=== PATIENT | male | born 1940 | race Caucasian/White ===

== ENCOUNTER 2018-11-28 06:10 | Inpatient (IN) | payer OTHER ==
[2018-11-18 13:45] VITALS: BMI 24.3
[2018-11-28] MEDS ORDERED: CEFAZOLIN 2 GM/D5W 2 GM/50 ML ML IVPB ONE (07:05)
[2018-11-28] MEDS ORDERED: TRANEXAMIC ACID 1000 MG/10 ML VIAL IVPUSH ONE (07:05)
[2018-11-28] MEDS ORDERED: MIDAZOLAM HCL 2 MG/2 ML SINGLE DOSE VIAL ONE (07:11)
[2018-11-28] MEDS ORDERED: BUPIVACAINE LIPOSOME/PF (EXPAREL) 266 MG/20 ML VIAL ONE (07:12)
[2018-11-28] MEDS ORDERED: SODIUM CHLORIDE 0.9% P/F 10 ML VIAL IJ ONE (07:12)
[2018-11-28] MEDS: GABAPENTIN 300 MG CAPSULE (FP) PO ONE (07:15)
[2018-11-28] MEDS: CELECOXIB 200 MG CAPSULE PO ONE ×2 (07:15→17:22)
[2018-11-28] MEDS ORDERED: SUCCINYLCHOLINE CHLORIDE 200 MG/10 ML SYRINGE ONE (07:23)
[2018-11-28] MEDS ORDERED: ceFAZolin SODIUM 1 GM VIAL ONE (07:23)
[2018-11-28] MEDS ORDERED: PROPOFOL 20 ML ONE ×2 (07:23)
[2018-11-28] MEDS ORDERED: BUPIVACAINE HCL/PF 0.5% (5MG/ML) 10 ML VIAL ONE (07:24)
[2018-11-28] MEDS ORDERED: TRANEXAMIC ACID 1000 MG/10 ML VIAL ONE (07:46)
[2018-11-28] MEDS ORDERED: VANCOMYCIN 1,000 MG VIAL (RESTRICTED TO ID ONLY) ONE (07:46)
--- NOTE | 2018-11-28 12:00 | SURG ---
Surgery Supervisor Riprap Placing Note Supervisor Riprap Placing: Regina Newell PA-C Date of Service: 11/28/18 Diagnosis: left knee OA Procedure: Left knee total Makoplasty I was present for the entirety of the operative procedure. For further detail, please refer to operative report. Visit type - Case Type Case Type: Scheduled - Emergency Emergency Visit: No - New patient This patient is new to me today: Yes Date on this admission: 11/28/18
[2018-11-28] MEDS ORDERED: ACETAMINOPHEN INJECTION 100 ML IVPB ONE (12:10)
--- NOTE | 2018-11-28 12:33 | OP ---
Operative Note - Note: Operative Date: 11/28/18 Pre-Operative Diagnosis: Left knee OA Operation: Left GLADIS TKA Post-Operative Diagnosis: Same as Pre-op Surgeon: Oli Eubanks Pie Icer Machine: Regina Newell Anesthesia: Spinal Estimated Blood Loss (mls): 200
[2018-11-28] MEDS ORDERED: ACETAMINOPHEN 1000 MG/100 ML VIAL (NON FORMULARY) IVPB ONE (12:35)
[2018-11-28] MEDS: KETOROLAC TROMETHAMINE 15 MG/ML VIAL IVPUSH SCH ×2 (12:35→19:20)
[2018-11-28] MEDS ORDERED: KETOROLAC TROMETHAMINE 30 MG/1 ML VIAL ONE (12:36)
[2018-11-28] MEDS ORDERED: ONDANSETRON 4 MG/2 ML VIAL IVPUSH PRN ×2 (12:38→12:44)
[2018-11-28] MEDS ORDERED: MAG HYDROX/AL HYDROX/SIMETH 30 ML UNIT-DOSE CUP PO PRN (12:38)
[2018-11-28] MEDS ORDERED: MAGNESIUM HYDROX 2400MG/30ML ORAL SUSPENSION 30 ML CUP PO PRN (12:38)
--- NOTE | 2018-11-28 12:43 | SPEC ---
DATE OF OPERATION: 11/28/2018 PREOPERATIVE DIAGNOSIS: Left knee osteoarthritis. POSTOPERATIVE DIAGNOSIS: Left knee osteoarthritis. PROCEDURE: Left total knee arthroscopy with MAKOplasty robotic navigation. ATTENDING SURGEON: Dean Carlosn MD DEBONER: SONIA Santiago ANESTHESIA: Spinal plus sedation. ESTIMATED BLOOD LOSS: 200 mL. COMPLICATIONS: None. DISPOSITION: The patient was transferred to the PACU in stable condition. IMPLANTS USED: [employer] size 5 femoral component, size 5 tibial component, 35-mm patellar component, 11-mm posterior stabilized polyethylene component. INDICATIONS: This is a 78-year-old male who presented to the office complaining of severe left knee pain. He was seen and examined by Dr. Carlson, diagnosed with severe left knee osteoarthritis. The patient was initially treated conservatively with injections, medications, and physical therapy but continued to have severe pain and ambulatory dysfunction. He was, therefore, indicated for a left total knee replacement. The risks, benefits, and alternatives to the procedure were explained to the patient in great detail, and he elected to proceed with the procedure. DESCRIPTION OF PROCEDURE: On the day of surgery, the patient was taken to the operating room and placed on the OR table. Spinal anesthesia was administered by the anesthesiologist. The patient was then positioned supine on the table and all bony prominences were padded. The knee was then prepped and draped in the usual sterile fashion and intravenous antibiotics were given for infection prophylaxis. A surgical time-out was then performed with the team, and the patients identity, procedure, side, availability of implants, and the administration of antibiotics was confirmed. With the knee flexed, a midline incision was made and carried down through the subcutaneous fat to the underlying retinaculum. A medial parapatellar arthrotomy was performed. This was followed by a subperiosteal dissection of the tissue off the proximal, medial tibia. A portion of fat pad was removed from under the patellar tendon, and a small portion of fat was excised off the distal supracondylar femur. Electrocautery and an [employer] bipolar sealing device were used to achieve hemostasis. The knee was then flexed further and the anterior horn of the lateral meniscus was released from the midline. Next, the anterior and posterior cruciate ligaments were transected. Grade 4 changes were noted diffusely throughout the knee. Femoral and tibial checkpoints were then placed in the appropriate location using a mallet. Two parallel bicortical self-drilling pins were placed in the tibial diaphysis after making stab incisions and bluntly dissecting down to bone. Two pins were then placed in the distal supracondylar femur. The [employer] navigation arrays were then attached to both the femoral and tibial pins and the lower extremity was then registered to the robotic navigation device using various joint movements, as well as inputting several dozen reference points. The knee was then taken through a full range of motion with a corrective force applied. Alignment in varus/valgus as well as flexion/extension and soft tissue balance was measured in various positions. The navigation device showed a numerical and graphic representation of the soft tissue balance. The components were repositioned virtually using the software until optimal soft tissue balance was achieved on screen. Once this was accomplished, the final plan was saved and sent to the robot. Self-retaining retractors were then placed at the joint line for exposure and protection of the collateral ligaments. The robot was brought into the sterile field and registered with the navigation device. The robotic arm with attached oscillating saw blade was then used to perform femoral and tibial bone cuts as per the saved software plan. The femoral box cut was made using the appropriately sized manual cutting guide. The knee was then irrigated. Trial components were placed and the knee was taken through a full range of motion to assess soft tissue balance and alignment. The range of motion was found to be excellent and the soft tissue balance was optimal and according to plan. The knee was then put into extension and the patella everted. The synovium around the patella was circumscribed with electrocautery. A caliper was used to measure the patellar thickness and a saw was then used to resect the patella at the chondro-osseous junction. The cut surface was then sized and drilled for the appropriate patellar button, with care taken to medialize it. A trial patella was then placed and the knee was again taken through a full range of motion. The knee was found to have both good balance and good patellar tracking. All of the components were removed except the tibial base plate. The appropriate instrumentation was used to drill and punch the proximal tibia for the keel of the final component. All bony surfaces were then cleaned with pulsatile lavage and dried. Bone cement was then prepared on the back table, and final components were cemented in place in the usual fashion. Extruded cement was removed. The polyethylene trial was placed, the knee was put into extension, and axial pressure was applied for compression while the cement hardened. The patellar button was similarly cemented into place. Once the cement had hardened, the knee was taken through a full range of motion to assess stability, balance, and patellar tracking. This was found to be optimal and the trial polyethylene was exchanged for the appropriately sized real implant. The wound was then thoroughly irrigated with normal saline. A 3-minute dilute Betadine lavage was performed. The knee was again irrigated using a pulsatile lavage device. A periarticular injection was used to locally infiltrate the capsular tissues surrounding the implant and prosthesis. Then No. 1 Polysorb and 0 VLoc 180 barbed sutures were used to close the arthrotomy. Then No. 1 Polysorb and 2-0 VLoc 90 sutures were used in the subcutaneous tissues. Then 4-0 undyed Vicryl and Dermabond skin adhesive was used to close the stab incisions made for the navigation pins. The skin was closed using both 3-0 VLoc 90 suture in a running subcuticular fashion and Dermabond skin adhesive. Once this was completed a sterile Aquacel dressing and compressive Hiro-wrap was applied. The patient was then awakened and taken to the PACU in stable condition. DEAN CARLSON M.D. [id number]
[2018-11-28] MEDS ORDERED: PROMETHAZINE HCL 25 MG/1 ML VIAL IVPUSH PRN (12:44)
[2018-11-28] MEDS ORDERED: oxyCODONE HCL 5 MG TABLET PO PRN (12:44)
[2018-11-28] MEDS: traMADol HCL 50 MG TABLET PO SCH ×2 (12:45→18:50)
[2018-11-28] MEDS ORDERED: LACTATED RINGERS SOLUTION 1,000 ML IV SCH (12:45)
[2018-11-28] MEDS: oxyCODONE HCL 5 MG TABLET PO PRN ×2 (16:39→21:07)
[2018-11-28] MEDS: CEFAZOLIN 2 GM/D5W 2 GM/50 ML ML IVPB SCH (18:15)
[2018-11-28] MEDS: ACETAMINOPHEN 325 MG TABLET (FP) PO SCH (18:30)
[2018-11-28] MEDS ORDERED: DEXAMETHASONE SOD PHOSPHATE 10 MG/1 ML VIAL IVPB ONE (20:00)
[2018-11-28] MEDS: GABAPENTIN 300 MG CAPSULE (FP) PO SCH (21:06)
[2018-11-28] MEDS: SENNOSIDES/DOCUSATE COMBO (SENNA PLUS) TABLET (UD) PO SCH (21:06)
[2018-11-28] MEDS: LISINOPRIL 20 MG TABLET (FP) PO SCH (21:06)
[2018-11-28] MEDS: ROSUVASTATIN CA 5 MG TABLET (FP) PO SCH (21:06)
[2018-11-28] MEDS: CELECOXIB 200 MG CAPSULE PO SCH (21:06)
[2018-11-28] MEDS: ASCORBIC ACID 500 MG TABLET (FP) PO SCH (21:08)
[2018-11-28] MEDS ORDERED: UBIDECARENONE 300 MG PO SCH (22:00)
[2018-11-29] MEDS: ACETAMINOPHEN 325 MG TABLET (FP) PO SCH ×4 (00:23→19:13)
[2018-11-29] MEDS: traMADol HCL 50 MG TABLET PO SCH ×4 (00:23→19:09)
[2018-11-29] MEDS: KETOROLAC TROMETHAMINE 15 MG/ML VIAL IVPUSH SCH ×2 (00:24→06:36)
[2018-11-29] MEDS: CEFAZOLIN 2 GM/D5W 2 GM/50 ML ML IVPB SCH (01:38)
[2018-11-29 07:52] LABS: HEMATOCRIT 40.5 % (35.4-49); HEMOGLOBIN 13.7 GM/dl (11.7-16.9); MCH 32.5 pg (25.7-33.7); MCHC 33.7 g/dl (32.0-35.9); MEAN CELL VOLUME 96.5 fl (80-96); MEAN PLT VOLUME 7.5 fl (7.5-11.1); PLATELET COUNT 161 K/MM3 (134-434); RDW 12.8 % (11.9-15.9); WHITE BLOOD COUNT 8.5 K/mm3 (4.0-10.8)
[2018-11-29 07:54] LABS: CALCIUM 8.5 mg/dl (8.5-10); CREATININE 1.1 mg/dl (0.55-1.3); POTASSIUM 5.3 mmol/L (3.5-5.1)
[2018-11-29] MEDS: GABAPENTIN 300 MG CAPSULE (FP) PO ONE (08:51)
--- NOTE | 2018-11-29 08:57 | PN ---
Progress Note, Physician Chief Complaint: s/p left TKA under spinal anesthesia History of Present Illness: post op day one, adductor canal block for postop pain control - Current Medication List Current Medications: Active Medications Acetaminophen (Tylenol -) 650 mg PO Q6H [facility] Stop: 12/01/18 18:29 Last Admin: 11/29/18 06:35 Dose: 650 mg Al Hydroxide/Mg Hydroxide (Mylanta Oral Suspension -) 30 ml PO Q4H PRN PRN Reason: DYSPEPSIA Amlodipine Besylate (Norvasc -) 5 mg PO DAILY [facility] Apixaban (Eliquis -) 2.5 mg PO BID [facility] Ascorbic Acid (Vitamin C -) 500 mg PO BID [facility] Last Admin: 11/28/18 21:08 Dose: 500 mg Celecoxib (Celebrex -) 200 mg PO BID [facility] Last Admin: 11/28/18 21:06 Dose: 200 mg Gabapentin (Neurontin -) 300 mg PO BID [facility] Stop: 12/01/18 21:59 Last Admin: 11/28/18 21:06 Dose: 300 mg Lisinopril (Prinivil) 20 mg PO BID [facility] Last Admin: 11/28/18 21:06 Dose: 20 mg Magnesium Hydroxide (Milk Of Magnesia -) 30 ml PO PRN PRN PRN Reason: CONSTIPATION Metoprolol Tartrate (Lopressor -) 25 mg PO DAILY [facility] Multivitamins/Minerals/Vitamin C (Tab-A-Vit -) 1 tab PO DAILY [facility] Ondansetron HCl (Zofran Injection) 4 mg IVPUSH Q6H PRN PRN Reason: NAUSEA Oxycodone HCl (Roxicodone -) 5 mg PO Q3H PRN PRN Reason: PAIN LEVEL 1-5 Oxycodone HCl (Roxicodone -) 10 mg PO Q3H PRN PRN Reason: PAIN LEVEL 6-10 Last Admin: 11/28/18 21:07 Dose: 10 mg Pantoprazole Sodium (Protonix -) 40 mg PO DAILY [facility] Rosuvastatin Calcium (Crestor -) 5 mg PO HS [facility] Last Admin: 11/28/18 21:06 Dose: 5 mg Senna/Docusate Sodium (Pericolace -) 2 tablet PO BID [facility] Last Admin: 11/28/18 21:06 Dose: 2 tablet Tramadol HCl (Ultram -) 50 mg PO Q6H [facility] Last Admin: 11/29/18 06:35 Dose: 50 mg - Objective Vital Signs: Vital Signs Temperature 97.9 F 11/29/18 06:00 Pulse Rate 60 11/29/18 06:00 Respiratory Rate 18 11/29/18 06:00 Blood Pressure 157/67 11/29/18 06:00 O2 Sat by Pulse Oximetry (%) 97 11/29/18 08:24 Constitutional: Yes: Well Nourished Cardiovascular: Yes: WNL Respiratory: Yes: WNL Gastrointestinal: Yes: WNL Labs: CBC, BMP 11/29/18 07:05 11/29/18 07:05 Assessment/Plan Pain well controlled at rest, painful when standing, took oral analgesic before PT, worked well for him No other anesthetic complications. Will sign off care at this time.
[2018-11-29] MEDS: PANTOPRAZOLE 40 MG TABLET (FP) PO SCH (09:33)
[2018-11-29] MEDS: GABAPENTIN 300 MG CAPSULE (FP) PO SCH ×2 (09:33→21:21)
[2018-11-29] MEDS: SENNOSIDES/DOCUSATE COMBO (SENNA PLUS) TABLET (UD) PO SCH ×2 (09:34→21:19)
[2018-11-29] MEDS: ASCORBIC ACID 500 MG TABLET (FP) PO SCH ×2 (09:36→21:22)
[2018-11-29] MEDS: MULTIVITAMINS (DAILY MVI) TABLET (FP) PO SCH (09:36)
[2018-11-29] MEDS: LISINOPRIL 20 MG TABLET (FP) PO SCH (09:36)
[2018-11-29] MEDS: amLODIPine BESYLATE 5 MG TABLET (FP) PO SCH (09:36)
[2018-11-29] MEDS: CELECOXIB 200 MG CAPSULE PO SCH ×2 (09:38→21:22)
[2018-11-29] MEDS: APIXABAN 2.5 MG TABLET PO SCH ×2 (09:43→21:21)
[2018-11-29] MEDS ORDERED: METOPROLOL TARTRATE 25 MG TABLET (FP) PO SCH ×2 (10:00→22:00)
--- NOTE | 2018-11-29 18:37 | CONSULT ---
Consultation: REQUESTING PROVIDER: Dr. Eubanks CONSULT REQUEST: We have been asked to medically evaluate this patient post- operatively for hyponatremia and confusion. HISTORY OF PRESENT ILLNESS: 78 year-old male with a PMH significant for HTN, HLD, CAD s/p stents (2012), skin cancer, and left knee OA s/p left Jeff TKA on 11/28/[address] Oli Eubanks. Patient exhibited difficulty processing instructions today during PT. 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 REVIEW OF SYSTEMS: CONSTITUTIONAL: Absent: fever, chills, diaphoresis, generalized weakness, malaise, loss of appetite, weight change HEENT: Absent: rhinorrhea, nasal congestion, throat pain, throat swelling, difficulty swallowing, mouth swelling, ear pain, eye pain, visual changes CARDIOVASCULAR: Absent: chest pain, syncope, palpitations, irregular heart rate, lightheadedness , peripheral edema RESPIRATORY: Absent: cough, shortness of breath, dyspnea with exertion, orthopnea, wheezing, stridor, hemoptysis GASTROINTESTINAL: Absent: abdominal pain, abdominal distension, nausea, vomiting, diarrhea, constipation, melena, hematochezia GENITOURINARY: Absent: dysuria, frequency, urgency, hesitancy, hematuria, flank pain, genital pain MUSCULOSKELETAL: +mild pain left knee Absent: myalgia, arthralgia, joint swelling, back pain, neck pain SKIN: Absent: rash, itching, pallor HEMATOLOGIC/IMMUNOLOGIC: Absent: easy bleeding, easy bruising, lymphadenopathy, frequent infections ENDOCRINE: Absent: unexplained weight gain, unexplained weight loss, heat intolerance, cold intolerance NEUROLOGIC: Absent: headache, focal weakness or paresthesias, dizziness, unsteady gait, seizure, mental status changes, bladder or bowel incontinence PSYCHIATRIC: Absent: anxiety, depression, suicidal or homicidal ideation, hallucinations. PHYSICAL EXAMINATION Vital Signs - 24 hr 11/28/18 11/28/18 11/28/18 20:27 21:00 22:45 Temperature 97.5 F L 97.5 F L Pulse Rate 52 L 46 L Respiratory 18 18 18 Rate Blood Pressure 115/55 L 116/57 L O2 Sat by Pulse 100 100 98 Oximetry (%) 11/29/18 11/29/1819 01:21 06:00 08:24 Temperature 97.7 F 97.9 F Pulse Rate 51 L 60 Respiratory 18 18 Rate Blood Pressure 149/66 157/67 O2 Sat by Pulse 99 97 97 Oximetry (%) 11/29/18 11/29/18 10:00 14:08 Temperature 97.8 F 97.9 F Pulse Rate 60 60 Respiratory 18 18 Rate Blood Pressure 144/58 L 138/57 L O2 Sat by Pulse 97 Oximetry (%) GENERAL: Alert. Oriented to person, , surroundings. But states he worked with PT today and then walked out of the hospital and went home. Resisted redirection but after several times being told he did not go home, he agreed. HEAD: Normal with no signs of trauma. EYES: Pupils equal, round and reactive to light, extraocular movements intact, sclera anicteric, conjunctiva clear. No lid lag. LUNGS: CTA HEART: RRR, S1, S2 ABDOMEN: Soft, nontender, not distended MUSCULOSKELETAL: Normal range of motion at all joints. No bony deformities or tenderness. No CVA tenderness. UPPER EXTREMITIES: 2+ pulses, warm, well-perfused. No cyanosis. No clubbing. Cap refill <2 seconds. No peripheral edema. LOWER EXTREMITIES: 2+ pulses, warm, well-perfused. No calf tenderness. No peripheral edema. NEUROLOGICAL: Cranial nerves II-XII intact. Normal speech. Laboratory Results - last 24 hr 11/29/18 11/29/18 07:05 07:05 WBC 8.5 RBC 4.20 Hgb 13.7 Hct 40.5 MCV 96.5 H MCH 32.5 MCHC 33.7 RDW 12.8 Plt Count 161 MPV 7.5 Sodium 127 L Potassium 5.3 H Chloride 93 L Carbon Dioxide 28 Anion Gap 6 L BUN 22.0 H Creatinine 1.1 Est GFR (CKD-EPI)AfAm 74.13 Est GFR (CKD-EPI)NonAf 63.96 Random Glucose 166 H Calcium 8.5 Active Medications Generic Name Dose Route Start Last Admin Trade Name Freq PRN Reason Stop Dose Admin Acetaminophen 650 mg 11/28/18 18:30 11/29/18 13:14 Tylenol - PO 12/01/18 18:29 650 mg Q6H [facility] Administration Al Hydroxide/Mg Hydroxide 30 ml 11/28/18 12:38 Mylanta Oral Suspension - PO Q4H PRN DYSPEPSIA Amlodipine Besylate 5 mg 11/29/18 10:00 11/29/18 09:36 Norvasc - PO 5 mg DAILY [facility] Administration Apixaban 2.5 mg 11/29/18 10:00 11/29/18 09:43 Eliquis - PO 2.5 mg BID [facility] Administration Ascorbic Acid 500 mg 11/28/18 22:00 11/29/18 09:36 Vitamin C - PO 500 mg BID [facility] Administration Celecoxib 200 mg 11/28/18 22:00 11/29/18 09:38 Celebrex - PO 200 mg BID [facility] Administration Gabapentin 300 mg 11/28/18 22:00 11/29/18 09:33 Neurontin - PO 12/01/18 21:59 300 mg BID [facility] Administration Lisinopril 20 mg 11/28/18 22:00 11/29/18 09:36 Prinivil PO 20 mg BID [facility] Administration Magnesium Hydroxide 30 ml 11/28/18 12:38 Milk Of Magnesia - PO PRN PRN CONSTIPATION Metoprolol Tartrate 25 mg 11/29/18 22:00 Lopressor - PO HS [facility] Multivitamins/Minerals/Vitamin C 1 tab 11/29/18 10:00 11/29/18 09:36 Tab-A-Vit - PO 1 tab DAILY [facility] Administration Ondansetron HCl 4 mg 11/28/18 12:38 Zofran Injection IVPUSH Q6H PRN NAUSEA Oxycodone HCl 5 mg 11/28/18 12:44 Roxicodone - PO Q3H PRN PAIN LEVEL 1-5 Oxycodone HCl 10 mg 11/28/18 12:44 11/28/18 21:07 Roxicodone - PO 10 mg Q3H PRN Administration PAIN LEVEL 6-10 Pantoprazole Sodium 40 mg 11/29/18 10:00 11/29/18 09:33 Protonix - PO 40 mg DAILY [facility] Administration Rosuvastatin Calcium 5 mg 11/28/18 22:00 11/28/18 21:06 Crestor - PO 5 mg HS [facility] Administration Senna/Docusate Sodium 2 tablet 11/28/18 22:00 11/29/18 09:34 Pericolace - PO 2 tablet BID [facility] Administration Tramadol HCl 50 mg 11/28/18 12:45 11/29/18 13:13 Ultram - PO 50 mg Q6H [facility] Administration ASSESSMENT/PLAN: 78 year-old male with a PMH significant for HTN, HLD, CAD s/p stents (2012), skin cancer, and left knee OA s/p left Jeff TKA on 11/28/[address] Oli Eubanks. Patient exhibited difficulty processing instructions today during PT. 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 Altered mental status --CT head stat --possible metabolic encephalopathy secondary to hyponatremia, Na 127; give NS 500mL x 1 bolus, then 50mL/hr; hold lisinopril evening dose; bmp q4h --mildly hyperkalemic, IV fluids --bradycardia: HR last night in 40s, now in 60s; hold metoprolol; cardiac monitoring; EKG; replete K>4, Mg >2 --r/o occult infection: UA, UC, blood cultures, CXR; no antibiotics for now --urinary retention: bladder scan showed ~400cc's; start flomax; monitor renal function; strict I&Os --stop all opioids DVT prophylaxis: on Eliquis Dispo: We will continue to follow the patient. Thank you for this consultative opportunity. Visit type - Emergency Visit Emergency Visit: Yes ED Registration Date: 11/28/18 Care time: The patient presented to the Emergency Department on the above date and was hospitalized for further evaluation of their emergent condition. - New Patient This patient is new to me today: Yes Date on this admission: 12/01/18 - Critical Care Critical Care patient: No
[2018-11-29] MEDS ORDERED: SODIUM CHLORIDE 500 ML IV STA (19:25)
[2018-11-29] MEDS ORDERED: SODIUM CHLORIDE 1,000 ML IV SCH ×2 (19:30→20:59)
[2018-11-29 20:09] LABS: BASO % 0.1 % (0-2.0); PLATELET COUNT 160 K/MM3 (134-434)
[2018-11-29 20:12] LABS: EOS % 0.1 % (0-4.5); HEMATOCRIT 35.2 % (35.4-49); HEMOGLOBIN 12.2 GM/dl (11.7-16.9); LYMPH % 3.8 % (8-40); MCH 33.4 pg (25.7-33.7); MCHC 34.6 g/dl (32.0-35.9); MEAN CELL VOLUME 96.4 fl (80-96); MEAN PLT VOLUME 7.9 fl (7.5-11.1); RBC 3.66 M/mm3 (4.00-5.60); RDW 12.8 % (11.9-15.9); WHITE BLOOD COUNT 14.1 K/mm3 (4.0-10.8)
[2018-11-29 20:24] LABS: ALBUMIN 3.6 g/dl (3.4-5.0); CREATININE 1.2 mg/dl (0.55-1.3); TOT PROT 6.3 g/dl (6.4-8.2)
[2018-11-29 20:28] LABS: POTASSIUM 5.6 mmol/L (3.5-5.1)
[2018-11-29] MEDS: ROSUVASTATIN CA 5 MG TABLET (FP) PO SCH (21:19)
[2018-11-29 23:41] LABS: CALCIUM 8.1 mg/dl (8.5-10); POTASSIUM 4.8 mmol/L (3.5-5.1)
--- NOTE | 2018-11-29 23:49 | PN ---
Progress Note (short form) - Note Progress Note: Pt seen and examined. Events noted. Hospitalist consultation appreciated. Afebrile Selected Entries 11/29/18 22:34 Temperature 97.9 F Pulse Rate 58 L Respiratory 18 Rate Blood Pressure 135/60 O2 Sat by Pulse 99 Oximetry (%) Oxygen Delivery Room Air Method Laboratory Tests 11/29/18 11/29/18 11/29/18 07:05 07:05 19:40 WBC 8.5 14.1 H Hgb 13.7 12.2 Hct 40.5 35.2 L Plt Count 161 160 Sodium 127 L Potassium 5.3 H Chloride 93 L Carbon Dioxide 28 Anion Gap 6 L BUN 22.0 H Random Glucose 166 H 11/29/18 11/29/18 19:40 23:25 WBC Hgb Hct Plt Count Sodium 125 L 124 L Potassium 5.6 H 4.8 Chloride 92 L 95 L Carbon Dioxide 28 28 Anion Gap 5 L 1 L BUN 30.0 H 26.0 H Random Glucose 153 H 128 H Gen: NAD, awake, coherent. LLE: c/d/i, NVID A/P POD #1 s/p L GLADIS TKA, hyponatremia, hyperkalemia, weakness, confusion Hold discharge until condition improves PT/OOB - WBAT LLE Hospitalist consult and recommendations appreciated.
[2018-11-30] MEDS: ACETAMINOPHEN 325 MG TABLET (FP) PO SCH ×4 (00:49→19:08)
[2018-11-30 04:13] LABS: BLOOD UREA NITROGEN 24.2 mg/dL (7-18); CREATININE 0.8 mg/dL (0.55-1.3); POTASSIUM 4.6 mmol/L (3.5-5.1)
[2018-11-30 07:53] LABS: HEMATOCRIT 33.1 % (35.4-49); HEMOGLOBIN 11.6 GM/dl (11.7-16.9); MCH 33.8 pg (25.7-33.7); MCHC 35.2 g/dl (32.0-35.9); MEAN CELL VOLUME 95.8 fl (80-96); MEAN PLT VOLUME 7.9 fl (7.5-11.1); PLATELET COUNT 142 K/MM3 (134-434); RBC 3.45 M/mm3 (4.00-5.60); WHITE BLOOD COUNT 10.2 K/mm3 (4.0-10.8)
[2018-11-30 07:56] LABS: CALCIUM 8.1 mg/dl (8.5-10); CREATININE 0.9 mg/dl (0.55-1.3); POTASSIUM 4.5 mmol/L (3.5-5.1)
[2018-11-30] MEDS: TAMSULOSIN HCL 0.4 MG CAP PO SCH (08:09)
[2018-11-30] MEDS: ASCORBIC ACID 500 MG TABLET (FP) PO SCH ×2 (09:13→21:32)
[2018-11-30] MEDS: GABAPENTIN 300 MG CAPSULE (FP) PO SCH ×2 (09:13→21:33)
[2018-11-30] MEDS: SENNOSIDES/DOCUSATE COMBO (SENNA PLUS) TABLET (UD) PO SCH ×2 (09:13→21:32)
[2018-11-30] MEDS: amLODIPine BESYLATE 5 MG TABLET (FP) PO SCH (09:13)
[2018-11-30] MEDS: PANTOPRAZOLE 40 MG TABLET (FP) PO SCH (09:13)
[2018-11-30] MEDS: MULTIVITAMINS (DAILY MVI) TABLET (FP) PO SCH (09:13)
[2018-11-30] MEDS: APIXABAN 2.5 MG TABLET PO SCH ×2 (09:13→21:33)
[2018-11-30 13:08] LABS: CALCIUM 7.9 mg/dl (8.5-10); CREATININE 0.9 mg/dl (0.55-1.3); POTASSIUM 4.7 mmol/L (3.5-5.1)
--- NOTE | 2018-11-30 15:59 | PATH ---
Surgical Pathology Report Patient Name: KATHLEEN SÁNCHEZ Med. Rec. #: [id number] /Age/Gender: 1940 (Age: 78) / M Account: [id number] Location: [facility] MED-SURG Taken: 11/28/2018 Received: 11/28/2018 Reported: 11/30/2018 Physicians: Oli Eubanks M.D. Specimen(s) Received LEFT KNEE BONE AND TISSUE Clinical History Left knee, osteoarthritis Final Diagnosis KNEE, LEFT, BONE AND TISSUE, TOTAL KNEE REPLACEMENT: DEGENERATIVE JOINT DISEASE. Electronically Signed Regina Zhu M.D. Gross Description Received in formalin, labeled "left knee, bone and tissue" is a 13.5 x 9.6 x 2.5 cm aggregate of multiple portions of bone with cartilage and soft tissue. The tibial plateau measures 8.2 x 4.5 x 1.0 cm. The articular surfaces show areas of eburnation and appear granular. The underlying trabecular bone is hard and yellow. Project Management Professional tissue is submitted in one cassette after decalcification. AE/11/29/2018 ebram/11/29/2018
[2018-11-30 16:45] LABS: CALCIUM 7.7 mg/dl (8.5-10); CREATININE 1.1 mg/dl (0.55-1.3); POTASSIUM 5.4 mmol/L (3.5-5.1)
[2018-11-30] MEDS ORDERED: SODIUM POLYSTYRENE SULFONATE 15 GM/60 ML BOTTLE PO ONE (19:08)
--- NOTE | 2018-11-30 19:58 | PN ---
Progress Note (short form) - Note Progress Note: Pt seen and examined. Events noted. Hospitalist consultation appreciated. Afebrile Selected Entries 11/30/18 11/30/18 11/30/18 09:09 14:02 18:00 Temperature 98.1 F 97.9 F Pulse Rate 61 68 Respiratory 18 17 Rate Blood Pressure 106/51 L 124/55 L O2 Sat by Pulse 100 97 94 L Oximetry (%) Laboratory Tests 11/29/18 11/30/18 11/30/18 19:40 06:53 12:44 WBC 14.1 H 10.2 RBC 3.66 L 3.45 L Hgb 12.2 11.6 L Hct 35.2 L 33.1 L Plt Count 160 142 Sodium 126 L Potassium 4.7 Chloride 95 L Carbon Dioxide 27 Anion Gap 4 L BUN 21.0 H Creatinine 0.9 Random Glucose 128 H Calcium 7.9 L 11/30/18 15:30 WBC RBC Hgb Hct Plt Count Sodium 124 L Potassium 5.4 H Chloride 94 L Carbon Dioxide 27 Anion Gap 3 L BUN 22.0 H Creatinine 1.1 Random Glucose 103 Calcium 7.7 L Gen: NAD, awake, coherent. LLE: c/d/i, NVID. (+) quad weakness A/P POD #2 s/p L GLADIS TKA, hyponatremia, hyperkalemia, weakness Hold discharge until condition improves PT/OOB - WBAT LLE Eventual discharge to SNF/rehab.
[2018-11-30 21:18] LABS: CALCIUM 7.8 mg/dl (8.5-10)
[2018-11-30] MEDS: ROSUVASTATIN CA 5 MG TABLET (FP) PO SCH (21:33)
[2018-12-01] MEDS: ACETAMINOPHEN 325 MG TABLET (FP) PO SCH ×3 (00:49→12:46)
--- NOTE | 2018-12-01 07:32 | PN ---
Physical Exam: SUBJECTIVE: Patient seen and examined at bedside. No confusion today, walked with PT, stronger. OBJECTIVE: Vital Signs Period Temp Pulse Resp BP Sys/Lujan Pulse Ox Last 24 Hr 97.5 F-98.7 F 61-73 17-18 106-147/49-67 93-100 GENERAL: A&Ox3. LUNGS: CTA HEART: RRR, S1, S2 ABDOMEN: Soft, nontender, not distended MUSCULOSKELETAL LLE: surgical dressing c/d/i, surgical site not visualized UPPER EXTREMITIES: 2+ pulses, warm, well-perfused. No cyanosis. No clubbing. Cap refill <2 seconds. No peripheral edema. LOWER EXTREMITIES: 2+ pulses, warm, well-perfused. No calf tenderness. No peripheral edema. NEUROLOGICAL: Cranial nerves II-XII intact. Normal speech. Laboratory Results - last 24 hr 11/30/18 11/30/18 11/30/18 06:53 06:53 10:56 WBC 10.2 RBC 3.45 L Hgb 11.6 L Hct 33.1 L MCV 95.8 MCH 33.8 H MCHC 35.2 RDW 13.0 Plt Count 142 MPV 7.9 Sodium 127 L Potassium 4.5 Chloride 96 L Carbon Dioxide 27 Anion Gap 4 L BUN 22.0 H Creatinine 0.9 Est GFR (CKD-EPI)AfAm 94.48 Est GFR (CKD-EPI)NonAf 81.52 Random Glucose 102 Serum Osmolality 271 L Calcium 8.1 L TSH 1.03 Urine Osmolality Ur Random Creatinine U Random Total Protein Ur Random Sodium Urine Creatinine Protein/Creatinin Ratio 11/30/18 11/30/18 11/30/18 12:44 15:30 16:20 WBC RBC Hgb Hct MCV MCH MCHC RDW Plt Count MPV Sodium 126 L 124 L Potassium 4.7 5.4 H Chloride 95 L 94 L Carbon Dioxide 27 27 Anion Gap 4 L 3 L BUN 21.0 H 22.0 H Creatinine 0.9 1.1 Est GFR (CKD-EPI)AfAm 94.48 74.13 Est GFR (CKD-EPI)NonAf 81.52 63.96 Random Glucose 128 H 103 Serum Osmolality Calcium 7.9 L 7.7 L TSH Urine Osmolality Ur Random Creatinine U Random Total Protein Ur Random Sodium 73 Urine Creatinine Protein/Creatinin Ratio 11/30/18 11/30/18 11/30/18 16:20 16:20 16:20 WBC RBC Hgb Hct MCV MCH MCHC RDW Plt Count MPV Sodium Potassium Chloride Carbon Dioxide Anion Gap BUN Creatinine Est GFR (CKD-EPI)AfAm Est GFR (CKD-EPI)NonAf Random Glucose Serum Osmolality Calcium TSH Urine Osmolality 505 Ur Random Creatinine U Random Total Protein 18.2 H 18.2 H Ur Random Sodium Urine Creatinine 62.0 Protein/Creatinin Ratio 0.3 11/30/18 11/30/18 16:20 20:50 WBC RBC Hgb Hct MCV MCH MCHC RDW Plt Count MPV Sodium 122 L Potassium 5.0 Chloride 89 L Carbon Dioxide 26 Anion Gap 7 L BUN 22.0 H Creatinine 1.0 Est GFR (CKD-EPI)AfAm 83.18 Est GFR (CKD-EPI)NonAf 71.77 Random Glucose 110 H Serum Osmolality Calcium 7.8 L TSH Urine Osmolality Ur Random Creatinine 64.8 U Random Total Protein Ur Random Sodium Urine Creatinine Protein/Creatinin Ratio Active Medications Generic Name Dose Route Start Trade Name Freq PRN Reason Stop Acetaminophen 650 mg 11/28/18 18:30 Tylenol - PO Q6H [facility] Al Hydroxide/Mg Hydroxide 30 ml 11/28/18 12:38 Mylanta Oral Suspension - PO Q4H PRN DYSPEPSIA Amlodipine Besylate 5 mg 11/29/18 10:00 Norvasc - PO DAILY [facility] Apixaban 2.5 mg 11/29/18 10:00 Eliquis - PO BID [facility] Ascorbic Acid 500 mg 11/28/18 22:00 Vitamin C - PO BID [facility] Gabapentin 300 mg 11/28/18 22:00 Neurontin - PO BID [facility] Lisinopril 20 mg 11/28/18 22:00 Prinivil PO BID [facility] Magnesium Hydroxide 30 ml 11/28/18 12:38 Milk Of Magnesia - PO PRN PRN CONSTIPATION Multivitamins/Minerals/Vitamin C 1 tab 11/29/18 10:00 Tab-A-Vit - PO DAILY [facility] Ondansetron HCl 4 mg 11/28/18 12:38 Zofran Injection IVPUSH Q6H PRN NAUSEA Pantoprazole Sodium 40 mg 11/29/18 10:00 Protonix - PO DAILY [facility] Rosuvastatin Calcium 5 mg 11/28/18 22:00 Crestor - PO HS [facility] Senna/Docusate Sodium 2 tablet 11/28/18 22:00 Pericolace - PO BID [facility] Tamsulosin HCl 0.4 mg 11/30/18 08:30 Flomax - PO DAILY@0830 [facility] ASSESSMENT/PLAN: 78 year-old male with a PMH significant for HTN, HLD, CAD s/p stents (2012), skin cancer, and left knee OA s/p left Jeff TKA on 11/28/18. Hospital course complicated by hyponatremia. Hyponatremia Metabolic encephalopathy likely due to hyponatremia, improved --Na dropped post-operatively and remains low at 127; will continue to trend ; if does not improve this evening, will d/c IV fluids and start fluid restriction --mental confusion observed yesterday appears to have resolved --gait was steadier today with PT --bradycardia also improved, HR now in 60s --no s/s of infection --making good urine, continue flomax --continue to hold opioids DVT prophylaxis: on Eliquis Dispo: We will continue to follow the patient. Thank you for this consultative opportunity. Visit type - Emergency Visit Emergency Visit: No - New Patient This patient is new to me today: No - Critical Care Critical Care patient: No
[2018-12-01] MEDS: TAMSULOSIN HCL 0.4 MG CAP PO SCH (07:55)
[2018-12-01 07:59] LABS: BASO % 0.3 % (0-2.0); EOS % 2.8 % (0-4.5); HEMOGLOBIN 10.3 GM/dl (11.7-16.9); LYMPH % 10.6 % (8-40); MCH 32.9 pg (25.7-33.7); MCHC 34.2 g/dl (32.0-35.9); MEAN CELL VOLUME 96.2 fl (80-96); MEAN PLT VOLUME 7.7 fl (7.5-11.1); MONO % 6.2 % (3.8-10.2); NEUT % 80.1 % (42.8-82.8); PLATELET COUNT 141 K/MM3 (134-434); RBC 3.12 M/mm3 (4.00-5.60); RDW 12.9 % (11.9-15.9); WHITE BLOOD COUNT 9.3 K/mm3 (4.0-10.8)
[2018-12-01 08:03] LABS: ALBUMIN 2.9 g/dl (3.4-5.0); BILIRUBIN,TOTAL 0.9 mg/dl (0.2-1); CALCIUM 7.6 mg/dl (8.5-10); CREATININE 0.9 mg/dl (0.55-1.3); MAGNESIUM 1.6 mg/dL (1.8-2.4); POTASSIUM 4.4 mmol/L (3.5-5.1); TOT PROT 5.1 g/dl (6.4-8.2)
[2018-12-01] MEDS ORDERED: MAGNESIUM OXIDE 400 MG TABLET (FP) PO ONE (08:45)
--- NOTE | 2018-12-01 10:37 | PN ---
Physical Exam: SUBJECTIVE: Patient seen and examined oob to chair. Did well with PT today. Gait is steadier. OBJECTIVE: Vital Signs Period Temp Pulse Resp BP Sys/Lujan Pulse Ox Last 24 Hr 97.9 F-98.7 F 61-73 17-18 106-137/48-61 93-98 GENERAL: A&Ox3. LUNGS: CTA HEART: RRR, S1, S2 ABDOMEN: Soft, nontender, not distended MUSCULOSKELETAL LLE: surgical dressing c/d/i, surgical site not visualized UPPER EXTREMITIES: 2+ pulses, warm, well-perfused. No cyanosis. No clubbing. Cap refill <2 seconds. No peripheral edema. LOWER EXTREMITIES: 2+ pulses, warm, well-perfused. No calf tenderness. No peripheral edema. NEUROLOGICAL: Cranial nerves II-XII intact. Normal speech. Laboratory Results - last 24 hr 11/30/18 11/30/18 11/30/18 10:56 12:44 15:30 WBC RBC Hgb Hct MCV MCH MCHC RDW Plt Count MPV Absolute Neuts (auto) Neutrophils % Lymphocytes % Monocytes % Eosinophils % Basophils % Sodium 126 L 124 L Potassium 4.7 5.4 H Chloride 95 L 94 L Carbon Dioxide 27 27 Anion Gap 4 L 3 L BUN 21.0 H 22.0 H Creatinine 0.9 1.1 Est GFR (CKD-EPI)AfAm 94.48 74.13 Est GFR (CKD-EPI)NonAf 81.52 63.96 Random Glucose 128 H 103 Serum Osmolality 271 L Calcium 7.9 L 7.7 L Magnesium Total Bilirubin AST ALT Alkaline Phosphatase Total Protein Albumin TSH 1.03 Urine Osmolality Ur Random Creatinine U Random Total Protein Ur Random Sodium Urine Creatinine Protein/Creatinin Ratio 11/30/18 11/30/18 11/30/18 16:20 16:20 16:20 WBC RBC Hgb Hct MCV MCH MCHC RDW Plt Count MPV Absolute Neuts (auto) Neutrophils % Lymphocytes % Monocytes % Eosinophils % Basophils % Sodium Potassium Chloride Carbon Dioxide Anion Gap BUN Creatinine Est GFR (CKD-EPI)AfAm Est GFR (CKD-EPI)NonAf Random Glucose Serum Osmolality Calcium Magnesium Total Bilirubin AST ALT Alkaline Phosphatase Total Protein Albumin TSH Urine Osmolality 505 Ur Random Creatinine U Random Total Protein 18.2 H Ur Random Sodium 73 Urine Creatinine 62.0 Protein/Creatinin Ratio 0.3 11/30/18 11/30/1819 16:20 16:20 20:50 WBC RBC Hgb Hct MCV MCH MCHC RDW Plt Count MPV Absolute Neuts (auto) Neutrophils % Lymphocytes % Monocytes % Eosinophils % Basophils % Sodium 122 L Potassium 5.0 Chloride 89 L Carbon Dioxide 26 Anion Gap 7 L BUN 22.0 H Creatinine 1.0 Est GFR (CKD-EPI)AfAm 83.18 Est GFR (CKD-EPI)NonAf 71.77 Random Glucose 110 H Serum Osmolality Calcium 7.8 L Magnesium Total Bilirubin AST ALT Alkaline Phosphatase Total Protein Albumin TSH Urine Osmolality Ur Random Creatinine 64.8 U Random Total Protein 18.2 H Ur Random Sodium Urine Creatinine Protein/Creatinin Ratio 12/01/18 12/01/18 06:57 06:57 WBC 9.3 RBC 3.12 L Hgb 10.3 L Hct 30.0 L MCV 96.2 H MCH 32.9 MCHC 34.2 RDW 12.9 Plt Count 141 MPV 7.7 Absolute Neuts (auto) 7.3 Neutrophils % 80.1 Lymphocytes % 10.6 D Monocytes % 6.2 Eosinophils % 2.8 D Basophils % 0.3 Sodium 122 L Potassium 4.4 Chloride 88 L Carbon Dioxide 27 Anion Gap 7 L BUN 17.0 Creatinine 0.9 Est GFR (CKD-EPI)AfAm 94.48 Est GFR (CKD-EPI)NonAf 81.52 Random Glucose 104 Serum Osmolality Calcium 7.6 L Magnesium 1.6 L Total Bilirubin 0.9 AST 28 ALT 18 Alkaline Phosphatase 38 L D Total Protein 5.1 L Albumin 2.9 L TSH Urine Osmolality Ur Random Creatinine U Random Total Protein Ur Random Sodium Urine Creatinine Protein/Creatinin Ratio Active Medications Generic Name Dose Route Start Last Admin Trade Name Freq PRN Reason Stop Dose Admin Acetaminophen 650 mg 11/28/18 18:30 12/01/18 06:40 Tylenol - PO 12/01/18 18:29 650 mg Q6H [facility] Administration Al Hydroxide/Mg Hydroxide 30 ml 11/28/18 12:38 Mylanta Oral Suspension - PO Q4H PRN DYSPEPSIA Amlodipine Besylate 5 mg 11/29/18 10:00 11/30/18 09:13 Norvasc - PO 5 mg DAILY [facility] Administration Apixaban 2.5 mg 11/29/18 10:00 11/30/18 21:33 Eliquis - PO 2.5 mg BID [facility] Administration Ascorbic Acid 500 mg 11/28/18 22:00 11/30/18 21:32 Vitamin C - PO 500 mg BID [facility] Administration Gabapentin 300 mg 11/28/18 22:00 11/30/18 21:33 Neurontin - PO 12/01/18 21:59 300 mg BID [facility] Administration Lisinopril 20 mg 11/28/18 22:00 11/29/18 09:36 Prinivil PO 20 mg BID [facility] Administration Magnesium Hydroxide 30 ml 11/28/18 12:38 Milk Of Magnesia - PO PRN PRN CONSTIPATION Multivitamins/Minerals/Vitamin C 1 tab 11/29/18 10:00 11/30/18 09:13 Tab-A-Vit - PO 1 tab DAILY [facility] Administration Pantoprazole Sodium 40 mg 11/29/18 10:00 11/30/18 09:13 Protonix - PO 40 mg DAILY [facility] Administration Rosuvastatin Calcium 5 mg 11/28/18 22:00 11/30/18 21:33 Crestor - PO 5 mg HS [facility] Administration Senna/Docusate Sodium 2 tablet 11/28/18 22:00 11/30/18 21:32 Pericolace - PO 2 tablet BID [facility] Administration Tamsulosin HCl 0.4 mg 11/30/18 08:30 12/01/18 07:55 Flomax - PO 0.4 mg DAILY@0830 [facility] Administration ASSESSMENT/PLAN: 78 year-old male with a PMH significant for HTN, HLD, CAD s/p stents (2012), skin cancer, and left knee OA s/p left Jeff TKA on 11/28/18. Hospital course complicated by hyponatremia. Hyponatremia Metabolic encephalopathy likely due to hyponatremia, improved --Na dropped post-operatively and remains low at 122; IV fluids stopped; fluid restrict 1L/24 hours --renal consult placed --mental confusion appears to have resolved --gait was steadier today with PT and walked further --bradycardia also improved, HR now in 70s and stable --no s/s of infection --making good urine, continue flomax --continue to hold opioids DVT prophylaxis: on Eli Dispo: We will continue to follow the patient. Thank you for this consultative opportunity. Visit type - Emergency Visit Emergency Visit: No - New Patient This patient is new to me today: No - Critical Care Critical Care patient: No
[2018-12-01] MEDS: amLODIPine BESYLATE 5 MG TABLET (FP) PO SCH (10:55)
[2018-12-01] MEDS: GABAPENTIN 300 MG CAPSULE (FP) PO SCH (10:55)
[2018-12-01] MEDS: PANTOPRAZOLE 40 MG TABLET (FP) PO SCH (10:55)
[2018-12-01] MEDS: ASCORBIC ACID 500 MG TABLET (FP) PO SCH ×2 (10:55→21:13)
[2018-12-01] MEDS: SENNOSIDES/DOCUSATE COMBO (SENNA PLUS) TABLET (UD) PO SCH ×2 (10:55→21:14)
[2018-12-01] MEDS: MULTIVITAMINS (DAILY MVI) TABLET (FP) PO SCH (10:55)
[2018-12-01] MEDS: APIXABAN 2.5 MG TABLET PO SCH ×2 (10:55→21:13)
--- NOTE | 2018-12-01 12:47 | PN ---
Progress Note (short form) - Note Progress Note: Pt seen and examined. Events noted. Hospitalist consultation appreciated. Afebrile Selected Entries 12/01/18 10:00 Temperature 98.3 F Pulse Rate 71 Respiratory 18 Rate Blood Pressure 115/48 L O2 Sat by Pulse 98 Oximetry (%) Oxygen Delivery Room Air Method Laboratory Tests 11/30/18 11/30/18 11/30/18 06:53 10:56 15:30 WBC 10.2 Hgb 11.6 L Hct 33.1 L Plt Count 142 Sodium 124 L Potassium 5.4 H Chloride 94 L Carbon Dioxide 27 Anion Gap 3 L BUN 22.0 H Creatinine 1.1 Random Glucose 103 Calcium Magnesium Total Bilirubin AST ALT Alkaline Phosphatase Total Protein Albumin TSH 1.03 11/30/18 12/01/18 12/01/18 20:50 06:57 06:57 WBC 9.3 Hgb 10.3 L Hct 30.0 L Plt Count 141 Sodium 122 L 122 L Potassium 5.0 4.4 Chloride 89 L 88 L Carbon Dioxide 26 27 Anion Gap 7 L 7 L BUN 22.0 H 17.0 Creatinine 1.0 0.9 Random Glucose 110 H 104 Calcium 7.6 L Magnesium 1.6 L Total Bilirubin 0.9 AST 28 ALT 18 Alkaline Phosphatase 38 L D Total Protein 5.1 L Albumin 2.9 L TSH Gen: NAD, awake, coherent. LLE: c/d/i, NVID. 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
[2018-12-01 13:43] LABS: CALCIUM 7.7 mg/dl (8.5-10); CREATININE 0.8 mg/dl (0.55-1.3); POTASSIUM 4.8 mmol/L (3.5-5.1)
--- NOTE | 2018-12-01 16:07 | CONSULT ---
Consult - text type - Consultation Consultation Note: Renal consult for hyponatremia This is a 78 year old gentleman with history of CAD s/p PCI and stenting in 2013 , hypertension, hyperlipidemia who is s/p GLADIS knee replacement and postoperatively found to have hyponatremia. Pt was noted to have confusion about 2 days ago but mentatioin is back to baseline now. He was on IVF and drinking a good amount of water after the surgery. Denies any seizures or lethargy. Making urine. Was not on any diuretics. Appears to be euvolemic. PMhx: as above Allergies: PCN Family Hx: NC Social Hx: no T/A/D ROS: as per HPI Home Medications Medication Instructions Recorded Amlodipine Besylate 5 mg PO DAILY 10/24/18 Aspirin [ASA -] 81 mg PO DAILY 10/24/18 Lisinopril 20 mg PO BID 10/24/18 Metoprolol Tartrate 25 mg PO DAILY 10/24/18 Rosuvastatin Calcium [Crestor] 5 mg PO HS 10/24/18 Ubidecarenone [Co Q-10] 300 mg PO HS 10/24/18 Vital Signs Temperature 99.0 F 12/01/18 14:00 Pulse Rate 75 12/01/18 14:00 Respiratory Rate 18 12/01/18 14:00 Blood Pressure 122/51 L 12/01/18 14:00 O2 Sat by Pulse Oximetry (%) 92 L 12/01/18 14:00 Intake & Output 11/28/18 11/29/18 11/30/18 12/01/18 23:59 23:59 23:59 23:59 Intake Total 2000 1150 3550 Output Total 400 1000 1200 500 Balance 4443 860 9332 -500 Weight 74.843 kg NAD awake and alert neck supple RRR CTA soft NT/ND left knee with dressing no edema CBC, BMP 12/01/18 06:57 12/01/18 12:53 Current Medications Acetaminophen (Tylenol -) 650 mg PO Q6H [facility] Stop: 12/01/18 18:29 Last Admin: 12/01/18 12:46 Dose: 650 mg Al Hydroxide/Mg Hydroxide (Mylanta Oral Suspension -) 30 ml PO Q4H PRN PRN Reason: DYSPEPSIA Amlodipine Besylate (Norvasc -) 5 mg PO DAILY [facility] Last Admin: 12/01/18 10:55 Dose: 5 mg Apixaban (Eliquis -) 2.5 mg PO BID [facility] Last Admin: 12/01/18 10:55 Dose: 2.5 mg Ascorbic Acid (Vitamin C -) 500 mg PO BID [facility] Last Admin: 12/01/18 10:55 Dose: 500 mg Lisinopril (Prinivil) 20 mg PO BID [facility] Last Admin: 11/29/18 09:36 Dose: 20 mg Magnesium Hydroxide (Milk Of Magnesia -) 30 ml PO PRN PRN PRN Reason: CONSTIPATION Multivitamins/Minerals/Vitamin C (Tab-A-Vit -) 1 tab PO DAILY [facility] Last Admin: 12/01/18 10:55 Dose: 1 tab Pantoprazole Sodium (Protonix -) 40 mg PO DAILY [facility] Last Admin: 12/01/18 10:55 Dose: 40 mg Rosuvastatin Calcium (Crestor -) 5 mg PO HS [facility] Last Admin: 11/30/18 21:33 Dose: 5 mg Senna/Docusate Sodium (Pericolace -) 2 tablet PO BID [facility] Last Admin: 12/01/18 10:55 Dose: 2 tablet Sodium Chloride (Sodium Chloride Tablet -) 1 gm PO BID [facility] Tamsulosin HCl (Flomax -) 0.4 mg PO DAILY@0830 [facility] Last Admin: 12/01/18 07:55 Dose: 0.4 mg 78 year old gentleman with history of CAD s/p PCI and stenting in 2012, hypertension, hyperlipidemia who is s/p GLADIS knee replacement and postoperatively found to have hyponatremia. 1. Euvolemic hypo-osmolar hyponatremia with excess ADH release after surgery 2. Hypertension 3. s/p GLADIS knee replacement 4. HLD 5. CAD Etiology appears to be excessive ADH release after surgery likely related to pain. CT head showed no pathology, CXR showed no pathology. No medications identified that would cause SIADH urine studies consistent with ADH release Maintain fluid restriction of 1L daily Start Salt tabs 1g BID No urgent indication for 3% saline if any AMS or seizures would transfer to ICU. Continue ACEi and CCB for hypertension pain control as needed Trend Na twice daily Thank you Av Lemon DO
[2018-12-01] MEDS: SODIUM CHLORIDE 1 GM TABLET PO SCH ×2 (16:26→21:13)
[2018-12-01 20:22] LABS: POTASSIUM 4.4 mmol/L (3.5-5.1)
[2018-12-01] MEDS: ROSUVASTATIN CA 5 MG TABLET (FP) PO SCH (21:13)
[2018-12-02 08:16] LABS: CALCIUM 8.3 mg/dl (8.5-10); CREATININE 0.8 mg/dl (0.55-1.3); POTASSIUM 4.4 mmol/L (3.5-5.1)
--- NOTE | 2018-12-02 08:32 | WOUND ---
Wound Assessment PMH - History of Present Illness Past Medical History Cardio/Vascular HTN,Hyperlipdemia Social History Smoking history Former smoker Have you smoked in the past 12 No months Hx Alcohol Use Yes: OCCASIONAL Current Medications Generic Name Dose Route Start Last Admin Trade Name Freq PRN Reason Stop Dose Admin Al Hydroxide/Mg Hydroxide 30 ml 11/28/18 12:38 Mylanta Oral Suspension - PO Q4H PRN DYSPEPSIA Amlodipine Besylate 5 mg 11/29/18 10:00 12/01/18 10:55 Norvasc - PO 5 mg DAILY [facility] Administration Apixaban 2.5 mg 11/29/18 10:00 12/01/18 21:13 Eliquis - PO 2.5 mg BID [facility] Administration Ascorbic Acid 500 mg 11/28/18 22:00 12/01/18 21:13 Vitamin C - PO 500 mg BID [facility] Administration Lisinopril 20 mg 11/28/18 22:00 11/29/18 09:36 Prinivil PO 20 mg BID [facility] Administration Magnesium Hydroxide 30 ml 11/28/18 12:38 Milk Of Magnesia - PO PRN PRN CONSTIPATION Multivitamins/Minerals/Vitamin C 1 tab 11/29/18 10:00 12/01/18 10:55 Tab-A-Vit - PO 1 tab DAILY [facility] Administration Pantoprazole Sodium 40 mg 11/29/18 10:00 12/01/18 10:55 Protonix - PO 40 mg DAILY [facility] Administration Rosuvastatin Calcium 5 mg 11/28/18 22:00 12/01/18 21:13 Crestor - PO 5 mg HS [facility] Administration Senna/Docusate Sodium 2 tablet 11/28/18 22:00 12/01/18 21:14 Pericolace - PO Not Given BID [facility] Sodium Chloride 1 gm 12/01/18 16:01 12/01/18 21:13 Sodium Chloride Tablet - PO 1 gm BID [facility] Administration Tamsulosin HCl 0.4 mg 11/30/18 08:30 12/01/18 07:55 Flomax - PO 0.4 mg DAILY@0830 [facility] Administration Allergies Allergy/AdvReac Type Severity Reaction Status Date / Time Penicillins Allergy Intermediate Rash Verified 11/28/18 07:25 Physical Exam - Objective Last Vital Signs Temp Pulse Resp BP Pulse Ox 99.3 F 74 18 132/55 L 93 L 12/02/18 06:17 12/02/18 06:17 12/02/18 06:17 12/02/18 06:17 12/02/18 06:17 Laboratory Last Values WBC 9.3 K/mm3 (4.0-10.8) 12/01/18 06:57 RBC 3.12 M/mm3 (4.00-5.60) L 12/01/18 06:57 Hgb 10.3 GM/dl (11.7-16.9) L 12/01/18 06:57 Hct 30.0 % (35.4-49) L 12/01/18 06:57 MCV 96.2 fl (80-96) H 12/01/18 06:57 MCH 32.9 pg (25.7-33.7) 12/01/18 06:57 MCHC 34.2 g/dl (32.0-35.9) 12/01/18 06:57 RDW 12.9 % (11.9-15.9) 12/01/18 06:57 Plt Count 141 K/MM3 (134-434) 12/01/18 06:57 MPV 7.7 fl (7.5-11.1) 12/01/18 06:57 Absolute Neuts (auto) 7.3 K/mm3 12/01/18 06:57 Neutrophils % 80.1 % (42.8-82.8) 12/01/18 06:57 Lymphocytes % 10.6 % (8-40) D 12/01/18 06:57 Monocytes % 6.2 % (3.8-10.2) 12/01/18 06:57 Eosinophils % 2.8 % (0-4.5) D 12/01/18 06:57 Basophils % 0.3 % (0-2.0) 12/01/18 06:57 Sodium 126 mmol/L (136-145) L 12/02/18 06:50 Potassium 4.4 mmol/L (3.5-5.1) 12/02/18 06:50 Chloride 91 mmol/L (98-107) L 12/02/18 06:50 Carbon Dioxide 25 mmol/L (21-32) 12/02/18 06:50 Anion Gap 10 MMOL/L (8-16) 12/02/18 06:50 BUN 10.0 mg/dl (7-18) 12/02/18 06:50 Creatinine 0.8 mg/dl (0.55-1.3) 12/02/18 06:50 Est GFR (CKD-EPI)AfAm 99.17 12/02/18 06:50 Est GFR (CKD-EPI)NonAf 85.56 12/02/18 06:50 Random Glucose 108 mg/dl (74-106) H 12/02/18 06:50 Serum Osmolality 271 mosm/kg (278-305) L 11/30/18 10:56 Calcium 8.3 mg/dl (8.5-10) L 12/02/18 06:50 Magnesium 1.6 mg/dL (1.8-2.4) L 12/01/18 06:57 Total Bilirubin 0.9 mg/dl (0.2-1) 12/01/18 06:57 AST 28 U/L (15-37) 12/01/18 06:57 ALT 18 U/L (13-61) 12/01/18 06:57 Alkaline Phosphatase 38 U/L (45-117) L D 12/01/18 06:57 Total Protein 5.1 g/dl (6.4-8.2) L 12/01/18 06:57 Albumin 2.9 g/dl (3.4-5.0) L 12/01/18 06:57 TSH 1.03 uIU/ml (0.358-3.74) 11/30/18 10:56 Urine Color Yellow 11/29/18 20:00 Urine Appearance Slightly 11/29/18 20:00 Urine pH 5.0 (4.5-8) 11/29/18 20:00 Urine Protein 1+ (NEGATIVE) H 11/29/18 20:00 Urine Glucose (UA) Negative (NEGATIVE) 11/29/18 20:00 Urine Ketones Negative (NEGATIVE) 11/29/18 20:00 Urine Blood Negative (NEGATIVE) 11/29/18 20:00 Urine Nitrite Negative (NEGATIVE) 11/29/18 20:00 Urine Bilirubin Negative (NEGATIVE) 11/29/18 20:00 Urine Urobilinogen 0.2 (0.2-1.0) 11/29/18 20:00 Ur Leukocyte Esterase Negative (NEGATIVE) 11/29/18 20:00 Urine RBC 0-2 /hpf (0-4) 11/29/18 20:00 Urine WBC 0-2 (NEGATIVE) 11/29/18 20:00 Urine Bacteria Few /hpf (NEGATIVE) 11/29/18 20:00 Urine Osmolality 505 mosm/kg (300-900) 11/30/18 16:20 Ur Random Creatinine 64.8 mg/dL 11/30/18 16:20 U Random Total Protein 18.2 mg/dL (0-11.9) H 11/30/18 16:20 Ur Random Sodium 73 MMOL/L (40-220) 11/30/18 16:20 Urine Creatinine 62.0 mg/dL (20-320) 11/30/18 16:20 Protein/Creatinin Ratio 0.3 mg/dL 11/30/18 16:20 Microbiology 11/29/18 20:30 Blood - Peripheral Venous Blood Culture - Preliminary NO GROWTH OBTAINED AFTER 48 HOURS, INCUBATION TO CONTINUE FOR 3 DAYS. 11/29/18 20:00 Blood - Peripheral Venous Blood Culture - Preliminary NO GROWTH OBTAINED AFTER 48 HOURS, INCUBATION TO CONTINUE FOR 3 DAYS. 11/29/18 20:00 Urine - Urine Clean Catch Urine Culture - Final NO GROWTH OBTAINED
--- NOTE | 2018-12-02 08:32 | PN ---
Physical Exam: SUBJECTIVE: Patient seen and examined oob to chair. More alert today, feeling better. says he is better than yesterday. Stronger. OBJECTIVE: Vital Signs Period Temp Pulse Resp BP Sys/Lujan Pulse Ox Last 24 Hr 98.2 F-99.3 F 71-76 16-18 115-132/48-83 92-98 GENERAL: A&Ox3. LUNGS: CTA HEART: RRR, S1, S2 ABDOMEN: Soft, nontender, not distended MUSCULOSKELETAL LLE: surgical dressing c/d/i, surgical site not visualized UPPER EXTREMITIES: 2+ pulses, warm, well-perfused. No cyanosis. No clubbing. Cap refill <2 seconds. No peripheral edema. LOWER EXTREMITIES: 2+ pulses, warm, well-perfused. No calf tenderness. No peripheral edema. NEUROLOGICAL: Cranial nerves II-XII intact. Normal speech. Laboratory Results - last 24 hr 12/01/18 12/01/18 12/02/18 12:53 20:00 06:50 Sodium 121 L 122 L 126 L Potassium 4.8 4.4 4.4 Chloride 88 L 88 L 91 L Carbon Dioxide 27 27 25 Anion Gap 6 L 7 L 10 BUN 16.0 13.0 10.0 Creatinine 0.8 1.0 0.8 Est GFR (CKD-EPI)AfAm 99.17 83.18 99.17 Est GFR (CKD-EPI)NonAf 85.56 71.77 85.56 Random Glucose 133 H 118 H 108 H Calcium 7.7 L 8.0 L 8.3 L Active Medications Generic Name Dose Route Start Last Admin Trade Name Freq PRN Reason Stop Dose Admin Al Hydroxide/Mg Hydroxide 30 ml 11/28/18 12:38 Mylanta Oral Suspension - PO Q4H PRN DYSPEPSIA Amlodipine Besylate 5 mg 11/29/18 10:00 12/01/18 10:55 Norvasc - PO 5 mg DAILY [facility] Administration Apixaban 2.5 mg 11/29/18 10:00 12/01/18 21:13 Eliquis - PO 2.5 mg BID [facility] Administration Ascorbic Acid 500 mg 11/28/18 22:00 12/01/18 21:13 Vitamin C - PO 500 mg BID [facility] Administration Lisinopril 20 mg 11/28/18 22:00 11/29/18 09:36 Prinivil PO 20 mg BID [facility] Administration Magnesium Hydroxide 30 ml 11/28/18 12:38 Milk Of Magnesia - PO PRN PRN CONSTIPATION Multivitamins/Minerals/Vitamin C 1 tab 11/29/18 10:00 12/01/18 10:55 Tab-A-Vit - PO 1 tab DAILY [facility] Administration Pantoprazole Sodium 40 mg 11/29/18 10:00 12/01/18 10:55 Protonix - PO 40 mg DAILY [facility] Administration Rosuvastatin Calcium 5 mg 11/28/18 22:00 12/01/18 21:13 Crestor - PO 5 mg HS [facility] Administration Senna/Docusate Sodium 2 tablet 11/28/18 22:00 12/01/18 21:14 Pericolace - PO Not Given BID [facility] Sodium Chloride 1 gm 12/01/18 16:01 12/01/18 21:13 Sodium Chloride Tablet - PO 1 gm BID [facility] Administration Tamsulosin HCl 0.4 mg 11/30/18 08:30 12/01/18 07:55 Flomax - PO 0.4 mg DAILY@0830 [facility] Administration ASSESSMENT/PLAN 78 year-old male with a PMH significant for HTN, HLD, CAD s/p stents (2012), skin cancer, and left knee OA s/p left Jeff TKA on 11/28/18. Hospital course complicated by hyponatremia. Hyponatremia Metabolic encephalopathy likely due to hyponatremia, improved SIADH --Na dropped post-operatively with associated mental confusion and gait instability --urine studies consistent with ADH release --per renal, etiology appears to be excessive ADH release after surgery likely related to pain --maintain fluid restrict 1L per 24 hours --salt tabs 1g BID --mental confusion has resolved and gait is steadier as Na levels improve --continue flomax Hypertension --BP stable --continue lisinopril, amlodipine Hyperlipidemia --continue Crestor Coronary artery disease --continue Crestor, amlodipine; not on ASA FEN Fluids: Restrict PO intake 1L/24 Electrolytes: replete as indicated Nutrition: regular diet DVT prophylaxis: on Eliquis post-op DVT per Dr. Wilkins Dispo: We will continue to follow the patient. Thank you for this consultative opportunity. Visit type - Emergency Visit Emergency Visit: Yes ED Registration Date: 11/28/18 Care time: The patient presented to the Emergency Department on the above date and was hospitalized for further evaluation of their emergent condition. - New Patient This patient is new to me today: No - Critical Care Critical Care patient: No
[2018-12-02] MEDS: TAMSULOSIN HCL 0.4 MG CAP PO SCH (09:05)
[2018-12-02] MEDS: PANTOPRAZOLE 40 MG TABLET (FP) PO SCH (09:26)
[2018-12-02] MEDS: amLODIPine BESYLATE 5 MG TABLET (FP) PO SCH (09:26)
[2018-12-02] MEDS: APIXABAN 2.5 MG TABLET PO SCH ×2 (09:26→21:05)
[2018-12-02] MEDS: SENNOSIDES/DOCUSATE COMBO (SENNA PLUS) TABLET (UD) PO SCH ×2 (09:26→21:05)
[2018-12-02] MEDS: SODIUM CHLORIDE 1 GM TABLET PO SCH ×2 (09:26→21:05)
[2018-12-02] MEDS: MULTIVITAMINS (DAILY MVI) TABLET (FP) PO SCH (09:26)
[2018-12-02] MEDS: ASCORBIC ACID 500 MG TABLET (FP) PO SCH ×2 (09:26→21:05)
--- NOTE | 2018-12-02 12:01 | EKG ---
Test Reason : Blood Pressure : / mmHG Vent. Rate : 058 BPM Atrial Rate : 058 BPM P-R Int : 218 ms QRS Dur : 110 ms QT Int : 446 ms P-R-T Axes : 050 031 051 degrees QTc Int : 437 ms SINUS BRADYCARDIA WITH 1ST DEGREE A-V BLOCK LOW VOLTAGE QRS NO PREVIOUS ECGS AVAILABLE Confirmed by PAZ JENKINS MD ([id number]) on 12/02/2018 12:01:20 PM Referred By: Oli Eubanks Confirmed By:PAZ JENKINS MD
--- NOTE | 2018-12-02 17:00 | PN ---
Progress Note (short form) - Note Progress Note: Renal follow up for hyponatremia Seen and examined at the bedside feels good no acute complaints denies any confusion, lethargy, weakness or sob pain is controlled well Vital Signs Temperature 99.4 F 12/02/18 14:34 Pulse Rate 84 12/02/18 14:34 Respiratory Rate 18 12/02/18 14:34 Blood Pressure 126/57 L 12/02/18 14:34 O2 Sat by Pulse Oximetry (%) 93 L 12/02/18 14:34 Intake & Output 11/29/18 11/30/18 12/01/18 12/02/18 23:59 23:59 23:59 23:59 Intake Total 1150 3550 400 990 Output Total 1000 1200 2050 900 Balance 150 2350 -1650 90 NAD no LE edema CBC, BMP 12/01/18 06:57 12/02/18 06:50 Current Medications Al Hydroxide/Mg Hydroxide (Mylanta Oral Suspension -) 30 ml PO Q4H PRN PRN Reason: DYSPEPSIA Amlodipine Besylate (Norvasc -) 5 mg PO DAILY [facility] Last Admin: 12/02/18 09:26 Dose: 5 mg Apixaban (Eliquis -) 2.5 mg PO BID [facility] Last Admin: 12/02/18 09:26 Dose: 2.5 mg Ascorbic Acid (Vitamin C -) 500 mg PO BID [facility] Last Admin: 12/02/18 09:26 Dose: 500 mg Lisinopril (Prinivil) 20 mg PO BID [facility] Last Admin: 11/29/18 09:36 Dose: 20 mg Magnesium Hydroxide (Milk Of Magnesia -) 30 ml PO PRN PRN PRN Reason: CONSTIPATION Multivitamins/Minerals/Vitamin C (Tab-A-Vit -) 1 tab PO DAILY [facility] Last Admin: 12/02/18 09:26 Dose: 1 tab Pantoprazole Sodium (Protonix -) 40 mg PO DAILY [facility] Last Admin: 12/02/18 09:26 Dose: 40 mg Rosuvastatin Calcium (Crestor -) 5 mg PO HS [facility] Last Admin: 12/01/18 21:13 Dose: 5 mg Senna/Docusate Sodium (Pericolace -) 2 tablet PO BID [facility] Last Admin: 12/02/18 09:26 Dose: 2 tablet Sodium Chloride (Sodium Chloride Tablet -) 1 gm PO BID [facility] Last Admin: 12/02/18 09:26 Dose: 1 gm Tamsulosin HCl (Flomax -) 0.4 mg PO DAILY@0830 [facility] Last Admin: 12/02/18 09:05 Dose: 0.4 mg 78 year old gentleman with history of CAD s/p PCI and stenting in 2012, hypertension, hyperlipidemia who is s/p GLADIS knee replacement and postoperatively found to have hyponatremia. 1. Euvolemic hypo-osmolar hyponatremia with excess ADH release after surgery 2. Hypertension 3. s/p GLADIS knee replacement 4. HLD 5. CAD Serum sodium improving with salt tabs and fluid restriction. CT head showed no pathology, CXR showed no pathology. No medications identified that would cause SIADH urine studies consistent with ADH release Maintain fluid restriction of 1L daily Continue Salt tabs 1g BID No urgent indication for 3% saline if any AMS or seizures would transfer to ICU. Continue ACEi and CCB for hypertension pain control as needed Trend Na daily Thank you Av Lemon DO
--- NOTE | 2018-12-02 20:05 | PN ---
Progress Note (short form) - Note Progress Note: Pt seen and examined. Doing well. Afebrile Selected Entries 12/02/18 12/02/18 08:40 14:34 Temperature 99.4 F Pulse Rate 84 Respiratory 18 Rate Blood Pressure 126/57 L O2 Sat by Pulse 96 93 L Oximetry (%) Oxygen Delivery Room Air Method Laboratory Tests 12/01/18 12/02/18 06:57 06:50 WBC 9.3 Hgb 10.3 L Hct 30.0 L Plt Count 141 Sodium 126 L Potassium 4.4 Chloride 91 L Carbon Dioxide 25 Anion Gap 10 BUN 10.0 Creatinine 0.8 Est GFR (CKD-EPI)AfAm 99.17 Est GFR (CKD-EPI)NonAf 85.56 Calcium 8.3 L Gen: NAD, awake, coherent. LLE: c/d/i, NVID. (+) quad weakness - improving A/P POD #4 s/p L GLADIS TKA, hyponatremia, hyperkalemia, weakness Currently on fluid restriction Renal consult appreciated PT/OOB - WBAT LLE Discharge to SNF/rehab in AM
--- NOTE | 2018-12-02 20:18 | DS ---
Physical Examination Vital Signs: Vital Signs Temperature 99.4 F 12/02/18 14:34 Pulse Rate 84 12/02/18 14:34 Respiratory Rate 18 12/02/18 14:34 Blood Pressure 126/57 L 12/02/18 14:34 O2 Sat by Pulse Oximetry (%) 93 L 12/02/18 14:34 Labs: CBC, BMP 12/01/18 06:57 12/02/18 06:50 Discharge Summary Problems reviewed: Yes Reason For Visit: LEFT KNEE OSTEOARTHRITIS Current Active Problems Hyponatremia syndrome (Acute) Osteoarthritis of left knee (Acute) Syndrome of inappropriate antidiuretic hormone secretion (Acute) Procedures: Principal: LEFT GLADIS TKA Other Procedures: . Hospital Course: Admitted for elective surgery. Procedure performed without complications. Pt received postoperative antibiotic prophylaxis and DVT ppx. He had postoperative hyponatremia and was seen by hospitalist and renal consult and diagnosed with SIADH. Treated with fluid restriction and salt tablets with improvement of symptoms. Ambulated with physical therapy. Stable for discharge to SNF/rehab facility with outpatient followup. Health Concerns: .. Plan of Treatment: . Goals: . Condition: Stable - Instructions Diet, Activity, Other Instructions: Dr. Eubanks - Knee Replacement Instructions Keep the Aquacel dressing on until removed by Dr. Eubanks in 10-14 days - it is antibacterial and waterproof and you can shower with it on. Call the office for a follow-up appointment with Dr. Eubanks in 10-14 days. [phone] Take ELIQUIS 2.5MG TWICE daily for 35 days to prevent blood clots in your legs. Take one Pantoprazole 40mg daily for 6 weeks to protect against heartburn and ulcers. Take Cephalexin (antibiotic) 3x/day for 10 days to help prevent skin infection. Take a multivitamin, stool softener, and extra Vitamin C supplement daily. For pain: *Mild pain (1-3/10): Take 1 Tramadol tablet every 4 hours as needed. Moderate pain (4-6/10): Take 1 Tramadol tablet and 1 Percocet tablet every 4 hours as needed. Severe pain (7-10/10): Take 1 Tramadol tablet and 2 Percocet tablets every 4 hours as needed. Activity: You can put as much weight on the operative leg as you want. Always use a walker or cane for balance and to prevent falls. Expect to see swelling/bruising from the operative site all the way down to your toes. Wear the compression stocking on the operative side during the day to minimize how much swelling there is in your foot/ankle. Don't wear the stocking at night. You don't have to wear a stocking on the other side. IMPORTANT ADDITIONAL MEDICAL INFORMATION FOR REHAB FACILITY Continue fluid restriction 1L/day as per renal consult Check electrolytes daily to monitor hyponatremia Call Dr. Eubanks and/or transfer patient [facility] to [facility] if there are any concerns. Referrals: Oli Eubanks MD [Staff Physician] - Disposition: [facility] FACILITY - Home Medications Comprehensive Discharge Medication List: Ambulatory Orders Amlodipine Besylate 5 mg PO DAILY 10/24/18 Lisinopril 20 mg PO BID 10/24/18 Metoprolol Tartrate 25 mg PO DAILY 10/24/18 Rosuvastatin Calcium [Crestor] 5 mg PO HS 10/24/18 Ubidecarenone [Co Q-10] 300 mg PO HS 10/24/18 Apixaban [Eliquis -] 2.5 mg PO BID #0 tablet 12/02/18 Ascorbic Acid [Vitamin C -] 500 mg PO BID tablet 12/02/18 Cephalexin Monohydrate [Keflex -] 500 mg PO TID #30 capsule 12/02/18 Multivitamins [Multivit ([facility] Form[facility])] 1 tab PO DAILY tab 12/02/18 Oxycodone HCl/Acetaminophen [Percocet 5-325 mg Tablet] 1 - 2 tab PO Q4H PRN #60 tablet MDD 10 12/02/18 Pantoprazole Sodium [Protonix -] 40 mg PO DAILY tablet.ec 12/02/18 Sennosides/Docusate Sodium [Pericolace -] 2 tablet PO BID tablet 12/02/18 Sodium Chloride Tablet - 1 gm PO BID tablet 12/02/18 Tamsulosin HCl [Flomax -] 0.4 mg PO DAILY@0830 cap.er.24h 12/02/18 traMADol HCL [Ultram -] 50 mg PO Q4H PRN #60 tablet MDD 6 12/02/18 Prescription Drug Monitoring Program (I-STOP) results: I-STOP reviewed and no issues identified
[2018-12-02] MEDS: ROSUVASTATIN CA 5 MG TABLET (FP) PO SCH (21:05)
[2018-12-03 06:48] VITALS: BP 146/64; PULSE 72; TEMP 98
--- NOTE | 2018-12-03 08:13 | PN ---
Progress Note, Physician Chief Complaint: We have been asked to medically evaluate this patient post-operatively bt Dr Eubanks for hyponatremia and confusion. POD#5 Left JEFF TKA History of Present Illness: 78 year-old male with a PMH significant for HTN, HLD, CAD s/p stents (2012), skin cancer, and left knee OA s/p left Jeff TKA on 11/28/18. Hospital course complicated by hyponatremia. - Current Medication List Current Medications: Active Medications Al Hydroxide/Mg Hydroxide (Mylanta Oral Suspension -) 30 ml PO Q4H PRN PRN Reason: DYSPEPSIA Amlodipine Besylate (Norvasc -) 5 mg PO DAILY [facility] Last Admin: 12/02/18 09:26 Dose: 5 mg Apixaban (Eliquis -) 2.5 mg PO BID [facility] Last Admin: 12/02/18 21:05 Dose: 2.5 mg Ascorbic Acid (Vitamin C -) 500 mg PO BID [facility] Last Admin: 12/02/18 21:05 Dose: 500 mg Lisinopril (Prinivil) 20 mg PO BID [facility] Last Admin: 11/29/18 09:36 Dose: 20 mg Magnesium Hydroxide (Milk Of Magnesia -) 30 ml PO PRN PRN PRN Reason: CONSTIPATION Multivitamins/Minerals/Vitamin C (Tab-A-Vit -) 1 tab PO DAILY [facility] Last Admin: 12/02/18 09:26 Dose: 1 tab Pantoprazole Sodium (Protonix -) 40 mg PO DAILY [facility] Last Admin: 12/02/18 09:26 Dose: 40 mg Rosuvastatin Calcium (Crestor -) 5 mg PO HS [facility] Last Admin: 12/02/18 21:05 Dose: 5 mg Senna/Docusate Sodium (Pericolace -) 2 tablet PO BID [facility] Last Admin: 12/02/18 21:05 Dose: 2 tablet Sodium Chloride (Sodium Chloride Tablet -) 1 gm PO BID [facility] Last Admin: 12/02/18 21:05 Dose: 1 gm Tamsulosin HCl (Flomax -) 0.4 mg PO DAILY@0830 [facility] Last Admin: 12/02/18 09:05 Dose: 0.4 mg - Objective Vital Signs: Vital Signs Temperature 98.0 F 12/03/18 06:47 Pulse Rate 72 12/03/18 06:47 Respiratory Rate 18 12/03/18 06:47 Blood Pressure 146/64 12/03/18 06:47 O2 Sat by Pulse Oximetry (%) 95 12/03/18 06:00 Constitutional: Yes: Well Nourished, No Distress, Calm Eyes: Yes: WNL, Conjunctiva Clear, EOM Intact HENT: Yes: WNL, Atraumatic, Normocephalic Neck: Yes: WNL, Supple, Trachea Midline Cardiovascular: Yes: WNL, Regular Rate and Rhythm Respiratory: Yes: WNL, Regular, CTA Bilaterally Gastrointestinal: Yes: WNL, Normal Bowel Sounds ...Rectal Exam: Yes: Deferred Genitourinary: Yes: WNL Musculoskeletal: Yes: WNL Extremities: Yes: WNL Edema: No Peripheral Pulses WNL: Yes Peripheral Pulses: Left Radial: 2+, Right Radial: 2+, Left Doralis Pedis: 2+, Right Dorsalis Pedis: 2+, Left Femoral: 2+, Right Femoral: 2+ Integumentary: Yes: WNL Wound/Incision: Yes: Clean/Dry, Dressing Dry and Intact Neurological: Yes: WNL, Alert, Oriented ...Motor Strength: WNL Psychiatric: Yes: WNL Labs: CBC, BMP 12/01/18 06:57 Problem List - Problems (1) HTN (hypertension) Assessment/Plan: c/w lisinopril, amlodipine Code(s): I10 - ESSENTIAL (PRIMARY) HYPERTENSION (2) HLD (hyperlipidemia) Assessment/Plan: continue Crestor Code(s): E78.5 - HYPERLIPIDEMIA, UNSPECIFIED (3) Hx of heart artery stent Assessment/Plan: continue Crestor, amlodipine; not on ASA Code(s): Z95.5 - PRESENCE OF CORONARY ANGIOPLASTY IMPLANT AND GRAFT (4) Prophylactic measure Assessment/Plan: FEN Fluids: Restrict PO intake 1L/24 Electrolytes: replete as indicated Nutrition: regular diet DVT prophylaxis: on Eliquis post-op DVT per Dr. Wilkins Dispo: We will continue to follow the patient. Thank you for this consultative opportunity. Code(s): Z29.9 - ENCOUNTER FOR PROPHYLACTIC MEASURES, UNSPECIFIED (5) S/P TKR (total knee replacement) Assessment/Plan: care as oer surgical team dressing c/d/i Code(s): Z96.659 - PRESENCE OF UNSPECIFIED ARTIFICIAL KNEE JOINT (6) Syndrome of inappropriate antidiuretic hormone secretion Assessment/Plan: Na 124-->122-->121-->126-->132 FeNa .97% free water restriction & salt tabs started Na now 132, stable for discharge to home Visit type - Emergency Visit Emergency Visit: No - New Patient This patient is new to me today: Yes Date on this admission: 12/03/18 - Critical Care Critical Care patient: No - Discharge Referral Referred to [facility] No
[2018-12-03 09:06] LABS: CALCIUM 8.4 mg/dl (8.5-10); CREATININE 0.7 mg/dl (0.55-1.3); POTASSIUM 4.2 mmol/L (3.5-5.1)
[2018-12-03] MEDS: amLODIPine BESYLATE 5 MG TABLET (FP) PO SCH (10:24)
[2018-12-03] MEDS: SENNOSIDES/DOCUSATE COMBO (SENNA PLUS) TABLET (UD) PO SCH (10:25)
[2018-12-03] MEDS: PANTOPRAZOLE 40 MG TABLET (FP) PO SCH (10:26)
[2018-12-03] MEDS: ASCORBIC ACID 500 MG TABLET (FP) PO SCH (10:26)
[2018-12-03] MEDS: TAMSULOSIN HCL 0.4 MG CAP PO SCH (10:26)
[2018-12-03] MEDS: MULTIVITAMINS (DAILY MVI) TABLET (FP) PO SCH (10:27)
[2018-12-03] MEDS: SODIUM CHLORIDE 1 GM TABLET PO SCH (10:27)
[2018-12-03] MEDS: APIXABAN 2.5 MG TABLET PO SCH (10:27)
== END 2018-12-03 12:04 | DRG 469 ==
LOC: FM/S 06:10
PROVIDERS: ADMIT Student in an Organized Health Care Education/Training Program; ATTEND Student in an Organized Health Care Education/Training Program
PROC: 8E0Y0CZ Robotic Assisted Procedure of Lower Extremity, Open Approach (ICD-10-PCS; 2018-11-28)
PROC: 0SRD0J9 Replacement of Left Knee Joint with Synthetic Substitute, Cemented, Open Approach (ICD-10-PCS; principal; 2018-11-28 09:12)
DX: M17.12 Unilateral primary osteoarthritis, left knee (principal); G93.41 Metabolic encephalopathy; E22.2 Syndrome of inappropriate secretion of antidiuretic hormone; E87.1 Hypo-osmolality and hyponatremia; R00.1 Bradycardia, unspecified; E78.5 Hyperlipidemia, unspecified; I25.10 Atherosclerotic heart disease of native coronary artery without angina pectoris; Z98.61 Coronary angioplasty status; I10 Essential (primary) hypertension; E87.5 Hyperkalemia
CPT/HCPCS: 36415; 70450-TC; 71045-TC-FY; 73560-TC-LT-FY; 80048; 80053; 81003; 81015; 82533; 82565; 82570; 83735; 83930; 83935; 84156; 84300; 84443; 85025; 85027; 87040; 87086; 88305-TC; 88311-TC; 93005; 94760; 97110-GP; 97116-GP; 97163-GP; J0131; J1100; J7030

== ENCOUNTER 2021-11-14 08:52 | Inpatient (IN) | payer OTHER ==
[2021-11-12 14:20] VITALS: BMI 22.1
[2021-11-14] MEDS ORDERED: CEFAZOLIN 2 GM in DEXTROSE 5%-WATER - 50 ML IVPB ONE (09:10)
[2021-11-14] MEDS ORDERED: TRANEXAMIC ACID 1000 MG/10 ML VIAL IVPUSH ONE (09:10)
[2021-11-14] MEDS ORDERED: BUPIVACAINE LIPOSOME/PF (EXPAREL) 266 MG/20 ML VIAL ONE (09:59)
[2021-11-14] MEDS ORDERED: BUPIVACAINE HCL 100 ML ONE (10:01)
[2021-11-14] MEDS ORDERED: MIDAZOLAM HCL 2 MG/2 ML SINGLE DOSE VIAL ONE (10:16)
[2021-11-14] MEDS ORDERED: VANCOMYCIN 1,000 MG VIAL (RESTRICTED TO ID ONLY) ONE (10:45)
[2021-11-14] MEDS ORDERED: PROPOFOL 20 ML ONE (12:28)
[2021-11-14] MEDS ORDERED: BUPIVICAINE 0.25%/MORPH PF/KETOROLAC - 51ML DISP.SYRINGE IA ONE (14:10)
[2021-11-14] MEDS ORDERED: ONDANSETRON 4 MG/2 ML VIAL IVPUSH PRN ×2 (15:21→15:32)
[2021-11-14] MEDS ORDERED: ACETAMINOPHEN 1000 MG/100 ML BAG IVPB ONE (15:21)
[2021-11-14] MEDS ORDERED: MAGNESIUM HYDROX 2400MG/30ML ORAL SUSPENSION 30 ML CUP PO PRN (15:32)
[2021-11-14] MEDS ORDERED: ACETAMINOPHEN INJECTION 100 ML IVPB ONE (15:32)
[2021-11-14] MEDS ORDERED: MAG HYDROX/AL HYDROX/SIMETH 30 ML UNIT-DOSE CUP PO PRN (15:32)
[2021-11-14] MEDS ORDERED: LACTATED RINGERS SOLUTION 1,000 ML IV SCH ×2 (15:45→15:56)
[2021-11-14] MEDS: CEFAZOLIN SODIUM 2 GM in DEXTROSE 5%-WATER 100 ML IVPB SCH (17:26)
[2021-11-14] MEDS: ASPIRIN 325 MG TABLET PO SCH (21:06)
[2021-11-14] MEDS: GABAPENTIN 300 MG CAPSULE PO SCH (21:06)
[2021-11-14] MEDS: SENNOSIDES/DOCUSATE COMBO (SENNA PLUS) TABLET (UD) PO SCH (21:06)
[2021-11-14] MEDS: ACETAMINOPHEN 500 MG TABLET (FP) PO SCH (21:06)
[2021-11-14] MEDS ORDERED: ROSUVASTATIN CA 5 MG TABLET PO SCH (22:00)
[2021-11-15] MEDS ORDERED: SODIUM CHLORIDE 500 ML IV STA (01:11)
[2021-11-15] MEDS: CEFAZOLIN SODIUM 2 GM in DEXTROSE 5%-WATER 100 ML IVPB SCH ×2 (01:14→09:34)
[2021-11-15] MEDS ORDERED: LACTATED RINGERS SOLUTION 1,000 ML/1,000 ML INFUS.BAG IV SCH (06:00)
[2021-11-15] MEDS: ACETAMINOPHEN 500 MG TABLET (FP) PO SCH ×2 (06:34→09:18)
[2021-11-15 08:16] LABS: CALCIUM 8.2 mg/dl (8.5-10); CREATININE 0.9 mg/dl (0.55-1.3)
[2021-11-15 08:18] LABS: HEMATOCRIT 31.4 % (35.4-49); MCHC 34.9 g/dl (32.0-35.9); MEAN CELL VOLUME 94.5 fl (80-96); MEAN PLT VOLUME 7.7 fl (7.5-11.1); PLATELET COUNT 140.8 10^3/uL (134-434); RBC 3.32 10^6/uL (4.00-5.60); RDW 14.8 % (11.9-15.9); WHITE BLOOD COUNT 10.9 10^3/uL (4.0-10.8)
[2021-11-15] MEDS ORDERED: TAMSULOSIN HCL 0.4 MG CAP PO SCH (08:30)
[2021-11-15] MEDS: GABAPENTIN 300 MG CAPSULE PO SCH (09:17)
[2021-11-15] MEDS: ASPIRIN 325 MG TABLET PO SCH (09:18)
[2021-11-15] MEDS: SENNOSIDES/DOCUSATE COMBO (SENNA PLUS) TABLET (UD) PO SCH (09:19)
[2021-11-15] MEDS ORDERED: PANTOPRAZOLE 40 MG TABLET PO SCH (10:00)
[2021-11-15] MEDS ORDERED: MULTIVITAMINS (DAILY MVI) TABLET (FP) PO SCH (10:00)
[2021-11-15] MEDS ORDERED: LISINOPRIL 20 MG TABLET PO SCH (10:00)
[2021-11-15] MEDS ORDERED: FINASTERIDE 5 MG TABLET (FP) PO SCH (10:00)
[2021-11-15] MEDS ORDERED: METOPROLOL TARTRATE 25 MG TABLET (FP) PO SCH (10:00)
[2021-11-15] MEDS ORDERED: amLODIPine BESYLATE 2.5 MG TABLET (FP) PO SCH (10:00)
[2021-11-15 14:04] VITALS: BP 98/57; PULSE 58; RESP 18; TEMP 97.9
== END 2021-11-15 14:32 | disposition home or self-care (01) | DRG 470 ==
LOC: FM/S 08:52 → UNDOADMIN 08:52
PROVIDERS: ADMIT Orthopaedic Surgery Sports Medicine; ATTEND Orthopaedic Surgery Sports Medicine
PROC: 8E0Y0CZ Robotic Assisted Procedure of Lower Extremity, Open Approach (ICD-10-PCS; 2021-11-14)
PROC: 0SRC0J9 Replacement of Right Knee Joint with Synthetic Substitute, Cemented, Open Approach (ICD-10-PCS; principal; 2021-11-14 12:40)
DX: M17.11 Unilateral primary osteoarthritis, right knee (principal); I13.0 Hypertensive heart and chronic kidney disease with heart failure and stage 1 through stage 4 chronic kidney disease, or unspecified chronic kidney disease; I50.32 Chronic diastolic (congestive) heart failure; I25.10 Atherosclerotic heart disease of native coronary artery without angina pectoris; I10 Essential (primary) hypertension; E78.5 Hyperlipidemia, unspecified; I95.89 Other hypotension; R00.1 Bradycardia, unspecified; G60.9 Hereditary and idiopathic neuropathy, unspecified; M54.16 Radiculopathy, lumbar region; M54.12 Radiculopathy, cervical region; N40.0 Benign prostatic hyperplasia without lower urinary tract symptoms; N18.9 Chronic kidney disease, unspecified
CPT/HCPCS: 36415; 73560-TC-RT-FY; 80048; 82962; 85027; 88307-TC; 88311-TC; 93005; 93010; 94760; 97116-GP; C1776; C1889